=== PATIENT | male | born 1995 | race Caucasian/White ===

== ENCOUNTER 2016-11-28 13:30 | Emergency (ER) | payer OTHER, MEDICAID ==
[2016-11-28 13:57] VITALS: BP_SYST 1; BP_SYST 154; BP_DIAS 85; PULSE 87; RESP 16; O2SAT 98
--- NOTE | 2016-11-28 14:02 | ED.REPORT ---
HPI-Extremity Problem Lower Date of Service Nov 28, 2016 ED Provider: History of Present Illness: right foot injury 11/22/2016 was pushing 2 carts the one in front of him he was able to stop but the one in back ran into right foot and then bounced off and hit him again limping since then. no medication, does a lot of walking. 3/10 pain at rest, 6/10 with walking. Happened at work. 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 Nursing Notes Stated Complaint: RT FOOT PAIN/[employer] EMPLOYEE INJURY Chief Complaint: General Complaint Nursing Notes Reviewed: Yes Allergies: Coded Allergies: No Known Allergies (Unverified Allergy, Unknown, 11/28/16) General Time Seen by MD: 14:02 Chief Complaint Foot injury right Hx Obtained From: Patient Onset Occurred: 6 days ago Symptom Duration: Since onset Caused by: Accidental Context: Occurred at: Workplace Exacerbated by: Range of motion Relieved by: Rest Past Medical History Past Medical History Denies: Asthma, Diabetes mellitus Past Surgical History Denies Smoking History Never Smoker Social History Alcohol Use: Denies alcohol use Drug Use: Denies drug use Occupation lives with girlfriend and 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 [employer] 11/28/2016 Ambulatory Status Independent Review of Systems Basic Review of Systems Eyes: Vision NL, No discharge GI: No abdominal pain, No anorexia, No nausea, No vomiting Allergy / Immune: No allergy Psychiatric: Normal thought content Physical Exam Initial Vital Signs Vital Signs (First) Date Time Temp Pulse Resp B/P Pulse Ox O2 Delivery O2 Flow Rate FiO2 11/28/16 13:57 37.0 87 16 154/85 98 Room Air Initial VS: Reviewed, Vital signs normal General/Constitutional: Well-developed, Well-nourished Head / Eyes: Atraumatic, Normocephalic, PERRL ENT: Mucous membranes moist, Conjunctiva normal, No scleral icterus Neck: Supple, Non-tender, Full range of motion Respiratory: Breath sounds normal, Clear to auscultation, No respiratory distress Cardiovascular: Regular rate & rhythm, Heart sounds normal, Intact distal pulses Abdomen / GI: Soft, Non-tender, No guarding, No rebound, No distention Back: No CVA tenderness Lymphatic: No lymphadenopathy Upper Extremities: Vascular intact, Neuro intact, No swelling, No tenderness Skin: Warm, Dry, No cyanosis Neurologic: Alert, Oriented, Nonfocal Psychiatric: Mood/affect normal, Behavior normal, Normal thought content Lower Extremity / Pelvis / MS: Atraumatic, Inspection NL, Full range of motion , No swelling right foot pain to palpation on achillestendon and on base of heel. sensation intact at toes. has full range of motion but with discomfort at dorsiflexion. cap refill less than 2 sec. no increase in erthyma or warmth. no ecchymosis noted. General/Constitutional: Awake, Alert, No acute distress, Well appearing, Well developed, Well hydrated Respiratory / Chest: Atraumatic, Breath sounds NL, Breath sounds = bilat Cardiovascular: Heart rate NL, Regular rhythm, Heart sounds NL Interpretation & Diagnostics X-Ray Interpretation Xray Interpretation: PROCEDURE: X-RAY RIGHT FOOT COMPLETE, MINIMUM THREE VIEWS ([id number]) INDICATIONS: hit with food cart times 2 on 11/22, continued pain TECHNIQUE: 3 views of the foot were acquired. COMPARISON: None. FINDINGS: Bones: No fractures or dislocations. No suspicious bony lesions. Soft tissues: No tibiotalar joint effusion. No radiopaque foreign bodies are evident. Incidental note is made of os peroneum. IMPRESSION: No acute osseous abnormality of the right foot. Dictated by: Bernardino Hendrickson M.D. on 11/28/2016 at 13:57 Approved by: Bernardino Hendrickson M.D. on 11/28/2016 at 13:58 Re-Eval/Medical Decision Med Decision/Clinical Course 21 year old male presents for evualation of foot injury which occured on 11/22. A ffod cart ran inot the back of his heel bounced off and hit it again. Patient has had difficulty walking since then. X-ray is negative for any fracture. Exam indicates pain to palpation on achilles tendon and on base of heel. No sign of compartment syndrome or bony damage. Exam consistent with tendonitis. Patient placed in walking boot and he is reporting walking easier. Discharge & Departure Impression: Primary Impression: Tendonitis of ankle or foot Disposition: Home Additional Instructions: The x-ray does not show any sign of bony damage. How ever, the mechanism of injury and the exam indicate a tendonitis. The cart hit the back of your heel and has inflamed the achilles tendon and have some plantar fascitis. Wear the boot till you are seen by podiatry. No work till 12/05/2016. Use ibuprofen 800mg in suspension form 3 times a day for 7 days. Referrals: Amita Castro (PCP) Andrea Queen DPM EDSupervising Provider for [facility]: Gokul Lemon DO copies to: Amita Castro; Andrea Queen DPM, Sue ARNP Nov 28, 2016 14:02
[2016-11-28] MEDS ORDERED: Ibuprofen Suspension 20 mg/mL 5 mL Suspension PO ONE (14:15)
--- NOTE | 2016-11-28 14:59 | DRSVH ---
PROCEDURE: X-RAY RIGHT FOOT COMPLETE, MINIMUM THREE VIEWS ([id number]) INDICATIONS: hit with food cart times 2 on 11/22, continued pain TECHNIQUE: 3 views of the foot were acquired. COMPARISON: None. FINDINGS: Bones: No fractures or dislocations. No suspicious bony lesions. Soft tissues: No tibiotalar joint effusion. No radiopaque foreign bodies are evident. Incidental n ote is made of os peroneum. IMPRESSION: No acute osseous abnormality of the right foot. Dictated by: Bernardino Hendrickson M.D. on 11/28/2016 at 13:57 Approved by: Bernardino Hendrickson M.D. on 11/28/2016 at 13:58
[2016-11-28 16:00] VITALS: BP 151/91; PULSE 80; RESP 16; O2SAT 99
== END 2016-11-28 16:00 | disposition home or self-care (01) ==
LOC: SED 13:30
DX: M77.51 Other enthesopathy of right foot and ankle (principal); W22.8XXA Striking against or struck by other objects, initial encounter; Y93.89 Activity, other specified; Y99.0 Civilian activity done for income or pay; Y92.59 Other trade areas as the place of occurrence of the external cause